=== PATIENT | female | born 2005 | race Caucasian/White ===

== ENCOUNTER 2025-03-02 14:19 | Outpatient (CLI) | payer BC, SELFPAY ==
[2025-03-02 23:15] LABS: Bacterial Vaginosis* POSITIVE (Negative); Candida glab/krus NOT DETECTED (No Detected)
== END 2025-03-02 14:20 | disposition home or self-care (01) ==
LOC: NFLDREF 14:19
PROVIDERS: Visit Provider Registered Nurse
DX: N89.8 Other specified noninflammatory disorders of vagina (principal)
CPT/HCPCS: 81513; 87481; 87661